=== PATIENT | male | born 1985 | race American Indian/Alaskan Native ===

== ENCOUNTER 2016-11-20 08:52 | Emergency (ER) | payer MEDICAID ==
--- NOTE | 2016-11-20 09:29 | ED PDOC ---
Arrival/HPI - General Chief Complaint: Lower Extremity Problem/Injury Time Seen by Provider: 11/20/16 08:55 Historian: Patient - History of Present Illness Time/Duration: Other (Early this morning) Symptom Onset: Sudden Symptom Course: Worsening Quality: Aching Severity Level: Severe Associated Symptoms (Text): 11/20/16 09:27 Patient reports he was running down the stairs at approximately 1 AM today when he developed acute onset of severe right calf pain. No knee or ankle pain. He did not fall. He was pushing off on the steps when it occurred. His Achilles tendon is intact on exam. No other injury or trauma. No chest pain or dyspnea. Past Medical History - Infectious Disease Hx of Infectious Diseases: None - Tetanus Immunization Tetanus Immunization: Unknown - Past Medical History Past Medical History: No Previous - Psychiatric Hx Depression: No Hx Emotional Abuse: No Hx Physical Abuse: No Hx Substance Use: No - Past Surgical History Past Surgical History: No Previous - Anesthesia Hx Anesthesia: No - Suicidal Assessment Feels Threatened In Home Enviroment: No Family/Social History - Physician Review Nursing Documentation Reviewed: Yes Family/Social History: Unknown Family HX Smoking Status: Current Some Days Smoker Hx Alcohol Use: Yes Frequency of alcohol use: Socially Hx Substance Use: No Hx Substance Use Treatment: No Allergies/Home Meds Allergies/Adverse Reactions: Allergies shellfish derived Allergy (Verified 11/20/16 09:16) SWELLING Review of Systems - Physician Review All systems were reviewed & negative as marked: Yes - Review of Systems Respiratory: Normal Cardiovascular: Normal Physical Exam Vital Signs Temp Pulse Resp BP Pulse Ox 11/20/16 10:01 83 16 147/74 98 11/20/16 09:18 98.3 F 86 18 143/100 H 98 Temperature: Afebrile Blood Pressure: Hypertensive Pulse: Regular Respiratory Rate: Normal Appearance: Positive for: Well-Appearing, Non-Toxic, Uncomfortable Pain Distress: Moderate Mental Status: Positive for: Alert and Oriented X 3 - Systems Exam Respiratory/Chest: Present: Clear to Auscultation, Good Air Exchange. No: Respiratory Distress, Accessory Muscle Use Cardiovascular: Present: Regular Rate and Rhythm, Normal S1, S2. No: Murmurs Lower Extremity: Present: Normal Inspection, CALF TENDERNESS, NORMAL PULSES, Normal ROM, Katerina's Sign, Tenderness, Neurovascularly Intact, Other (Right calf tenderness with no swelling and full range of motion of the ankle and knee. Achilles tendon is intact.). No: Edema, Cyanosis, Swelling, Erythema, Deformity Neurological: Present: GCS=15, CN II-XII Intact, Speech Normal, Motor Func Grossly Intact Skin: Present: Warm, Dry, Normal Color. No: Rashes Medical Decision Making - RAD Interpretation Radiology Orders: 11/20/16 09:20 DUPLEX LOWER EXTRM VEIN RIGHT [US] Stat Venous Doppler as read by the radiologist is negative for DVT. Senior Investigator: Radiologist - Medication Orders Current Medication Orders: Discontinued Medications Ketorolac Tromethamine (Toradol) 60 mg IM ONCE ONE Stop: 11/20/16 09:20 Last Admin: 11/20/16 09:34 Dose: 60 mg Disposition/Present on Arrival - Present on Arrival Any Indicators Present on Arrival: No History of DVT/PE: No History of Uncontrolled Diabetes: No Urinary Catheter: No History of Decub. Ulcer: No History Surgical Site Infection Following: None - Disposition Have Diagnosis and Disposition been Completed?: Yes Diagnosis: Strain of right gastrocnemius muscle Disposition: HOME/ ROUTINE Disposition Time: 10:05 Patient Plan: Discharge Condition: GOOD Discharge Instructions (ExitCare): Muscle Strain (ED) Additional Instructions: Rest ice and elevation. Follow-up with PMD. Follow-up in the ER as needed. Prescriptions: Tramadol HCl [Ultram] 50 mg PO Q6 PRN #15 tab PRN Reason: Pain Forms: WORK NOTE
[2016-11-20 09:52] VITALS: TEMP 98.3; O2SAT 98; BMI 25.7
[2016-11-20 10:02] VITALS: BP 147/74; PULSE 83; RESP 16
--- NOTE | 2016-11-20 13:33 | US ---
PROCEDURE: Right lower extremity venous US HISTORY: Leg pain and swelling. Evaluate for DVT. PHYSICIAN(S): Bassam Escobedo M.D. TECHNIQUE: Duplex sonography and color-flow Doppler with graded compression were used to evaluate the deep venous system of the right lower extremity. FINDINGS: The visualized deep venous system of the right lower extremity is sonographically normal and compressible. Normal waveforms and augmentation are seen. There is no sonographic evidence for deep venous thrombosis in the visualized segments of the right lower extremity. IMPRESSION: 1. No sonographic evidence for deep venous thrombosis in the visualized segments of the right lower extremity.
== END 2016-11-20 10:33 | disposition home or self-care (01) ==
LOC: ED 08:52
DX: S86.911A Strain of unspecified muscle(s) and tendon(s) at lower leg level, right leg, initial encounter (principal); Y93.02 Activity, running
CPT/HCPCS: 93971; 96372; 99284; J1885